=== PATIENT | female | born 1960 | race Caucasian/White ===

== ENCOUNTER 2020-02-23 13:08 | Outpatient (REF) | payer OTHER, SELFPAY ==
--- NOTE | 2020-02-23 | MM_ITS ---
EXAMINATION: MM SCREENING DIGITAL BREAST TOMOSYNTHESIS, BILATERAL CLINICAL INFORMATION: Screening. Asymptomatic. No previous surgery. No known family history breast cancer. The lifetime risk of breast cancer based on the Tyrer-Cuzick Model is 5%. COMPARISON: Mammography: 02/19/2019, 12/31/2017, 11/22/2016, 02/20/2016, 09/28/2014 TECHNIQUE: Digital breast tomosynthesis is performed in both the craniocaudal and mediolateral oblique views along with computer-aided detection (CAD). Synthesized 2D images are generated from the tomosynthesis. FINDINGS: There are scattered areas of fibroglandular density (ACR BI-RADS breast composition Category b). The right breast shows no significant changes from prior studies. There is no developing density or interval mass or architectural abnormality. Neither breast shows abnormal calcifications. The bilateral axilla and skin contours are unremarkable. The left MLO view has subtle architectural changes upper quadrant 8 cm from nipple, best appreciated on tomography. There is no correlate on the CC view. Oval parenchymal asymmetry outer left breast on CC view is stable from multiple prior studies. Patient will be recalled for additional imaging. MM/MM tomosynthesis screening BI IMPRESSION: 1. Left: Subtle architectural distortion suspected posterior upper breast on MLO tomography. 2. Right: No mammographic evidence of malignancy. ASSESSMENT: BI-RADS 0: Incomplete - Need Additional Imaging Evaluation RECOMMENDATION: 1. Additional views of the left breast (3-D spot MLO, 3-D ML). 2. Targeted ultrasound if warranted after review of the additional views. 3. Radiology department staff will contact the patient for additional imaging. This patient's information was entered into a reminder system with a target due date for their next mammogram.
== END 2020-02-23 13:09 | disposition home or self-care (01) ==
LOC: HO.MAMMO 13:08
PROVIDERS: PCP Internal Medicine; Visit Provider Internal Medicine
DX: Z12.31 Encounter for screening mammogram for malignant neoplasm of breast (principal)
CPT/HCPCS: 77063; 77067

== ENCOUNTER 2020-03-15 09:18 | Outpatient (REF) | payer OTHER, SELFPAY ==
--- NOTE | 2020-03-15 09:22 | MM_ITS ---
EXAMINATION: MM DIAGNOSTIC DIGITAL BREAST TOMOSYNTHESIS, LEFT US DIAGNOSTIC ULTRASOUND BREAST, LEFT CLINICAL INFORMATION: Recall from screening for subtle architectural changes posterior outer left breast 2:00 to 3:00 position. COMPARISON: Mammography: 02/23/2020 and multiple prior exams dating back to 03/01/2009 TECHNIQUE: Digital breast tomosynthesis is performed. 2D images are generated from the tomosynthesis. The following views are obtained: 3-D spot MLO, 3-D spot ML Ultrasound left breast is targeted to the 2:00 to 3:00 position. Grayscale imaging and color Doppler are performed without and with harmonics. FINDINGS: There are scattered areas of fibroglandular density (ACR BI-RADS breast composition Category b). There are subtle architectural changes in the area for recall. The additional views appears similar to prior studies dating back to 2008. There is no increasing architectural changes or developing density. Ultrasound demonstrates no cystic or solid mass, architectural abnormality, or focal posterior shadowing. Results are discussed with the patient at time of visit. Patient has history bilateral reduction mammoplasty 2004. Findings are considered to be benign given the lack of significant change since 2008 and the prior history breast surgery. MM/MM tomosynthesis added views L IMPRESSION: Old scarring left breast consistent with prior remote mammography and prior history reduction mammoplasty. ASSESSMENT: BI-RADS 2: Benign RECOMMENDATION: Routine annual mammography screening. This patient's information was entered into a reminder system with a target due date for their next mammogram.
== END 2020-03-15 09:19 | disposition home or self-care (01) ==
LOC: HO.MAMMO 09:18
PROVIDERS: PCP Internal Medicine; Visit Provider Internal Medicine
DX: N64.89 Other specified disorders of breast (principal)
CPT/HCPCS: 76642; 77061; 77065

== ENCOUNTER 2021-01-17 09:13 | Outpatient (REF) | payer OTHER, SELFPAY ==
[2021-01-17 09:37] LABS: MANUAL DIFF FLAG NO
[2021-01-17 09:55] LABS: Basophils Absolute Auto 0.1 X10*3/uL (0.0-0.2); Basophils Percent Auto 0.7 % (0-2); Eosinophils Absolute Auto 0.1 X10*3/uL (0.0-0.4); Eosinophils Percent Auto 1.3 % (0-4); Hematocrit 44.7 % (37-47); Hemoglobin 14.8 g/dl (12.0-16.0); Imm Gran Abs Auto 0.02 X10*3/uL (0.00-0.03); Imm Gran Pct Auto 0.3 % (0.0-0.4); Lymphocytes Absolute Auto 2.3 X10*3/uL (1.2-4.9); Lymphocytes Percent Auto 34.1 % (20-40); Mean Corpuscular HGB Conc 33.1 g/dl (31.0-35.0); Mean Corpuscular Hemoglobin 28.2 pg (27.0-33.0); Mean Corpuscular Volume 85.3 fL (80-98); Mean Platelet Volume 9.7 fL (9.4-12.3); Monocytes Absolute Auto 0.6 X10*3/uL (0.1-1.2); Monocytes Percent Auto 8.2 % (2-11); Neutrophils Absolute Auto 3.8 X10*3/uL (2.0-8.3); Neutrophils Percent Auto 55.4 % (45-73); Platelet Count 338 X10*3/uL (160-400); Red Blood Count 5.24 X10*6/uL (4.20-5.50); Red Cell Distribution Width 12.9 % (11.0-16.0); White Blood Count 6.8 X10*3/uL (4.8-10.8)
[2021-01-17 10:13] LABS: Alanine Aminotransferase 13 U/L (0-31); Albumin Level 4.5 g/dL (3.5-5.0); Alkaline Phosphatase 62 U/L (39-117); Anion Gap 11 (12-20); Aspartate Amino Transferase 15 U/L (5-31); Bilirubin Total 0.6 mg/dL (0.0-1.0); Blood Urea Nitrogen 10 mg/dL (9-16); Calcium 10.1 mg/dL (8.4-10.2); Carbon Dioxide 29 mmol/L (22-29); Chloride 105 mmol/L (96-108); Cholesterol 291 mg/dL; Estimated Glomerular Filt Rate > 60; Glucose Fasting 107 mg/dL (60-99); HDL Cholesterol 47 mg/dL; LDL Cholesterol Calculated 219 mg/dl; Potassium 4.3 mmol/L (3.3-5.1); Sodium 141 mmol/L (135-145); Total Protein 7.2 g/dL (6.5-8.0); Triglycerides 126 mg/dL
[2021-01-17 10:38] LABS: Vitamin D 25-OH Total 31.5 ng/mL (>30)
[2021-01-17 10:45] LABS: Vitamin B12 426 pg/mL (200-900)
== END 2021-01-17 09:14 | disposition home or self-care (01) ==
LOC: HO.LAB 09:13
PROVIDERS: PCP Internal Medicine; Visit Provider Internal Medicine
DX: Z00.00 Encounter for general adult medical examination without abnormal findings (principal); E53.8 Deficiency of other specified B group vitamins; M81.0 Age-related osteoporosis without current pathological fracture
CPT/HCPCS: 36415; 80053; 80061; 82306; 82607; 85025

== ENCOUNTER 2021-03-23 08:56 | Outpatient (REF) | payer OTHER, SELFPAY ==
--- NOTE | ~2021-03-23 | MM_ITS ---
EXAMINATION: MM SCREENING DIGITAL BREAST TOMOSYNTHESIS, BILATERAL CLINICAL INFORMATION: Screening. Asymptomatic. The lifetime risk of breast cancer based on the Tyrer-Cuzick Model is 5.6%. COMPARISON: Mammography: March 15, 2020 and studies dating back to April 11, 2010. TECHNIQUE: Digital breast tomosynthesis is performed in both the craniocaudal and mediolateral oblique views along with computer-aided detection (CAD). Synthesized 2D images are generated from the tomosynthesis. FINDINGS: There are scattered areas of fibroglandular density (ACR BI-RADS breast composition Category b). There are no significant masses, abnormal calcifications, or other abnormalities. Region of architectural distortion upper outer aspect of the left breast appears stable. MM/MM tomosynthesis screening BI IMPRESSION: There are no significant changes from prior study. ASSESSMENT: BI-RADS 2: Benign RECOMMENDATION: Routine annual mammography screening. This patient's information was entered into a reminder system with a target due date for their next mammogram.
--- NOTE | ~2021-03-23 | MM_ITS ---
EXAMINATION: BONE DENSITOMETRY CLINICAL INDICATION: Menopause. Osteoporosis. COMPARISON: Baseline BD dated 09/28/2010. TECHNIQUE: Using a Add[employer]ive DXA System (software version: 13.1) manufactured by [employer], dual-energy x-ray absorptiometry was performed of the lumbar spine and left hip. The images are of good technical quality. Summary results are attached. FINDINGS: AP SPINE L1-L4: Current: BMD 0.755 g/cm2, Z-score -2.3, T-score -3.5, osteoporosis, 16.3% decrease from baseline (<5% change is not significant). Baseline: BMD 0.902 g/cm2. LEFT FEMUR, NECK: Current: BMD 0.768 g/cm2, Z-score -0.7, T-score -1.9, osteopenia. Baseline: BMD 0.842 g/cm2. LEFT FEMUR, TOTAL: Current: BMD 0.871 g/cm2, Z-score -0.2, T-score -1.1, osteopenia, 6.8% decrease from baseline (<5% change is not significant). Baseline: BMD 0.935 g/cm2. IDENTIFIED RISK FACTORS: Early menopause, hysterectomy, bilateral oophorectomy, osteoporosis, secondary osteoporosis. HISTORY OF FRACTURE: None listed. MEDICATIONS: None listed. MM/XR DEXA axial skeleton IMPRESSION: 1. DIAGNOSIS: Osteoporosis based on the lowest T-score value of -3.5 in the lumbar spine applying World Health Organization criteria. 2. 10-YEAR FRACTURE RISK PREDICTION, FRAX: According to the guidelines, FRAX calculation should only be performed on patients in the osteopenia bone density category. 3. Treatment Recommendations: NOF guidelines recommend consideration for treatment in postmenopausal women and men age 50 and older presenting with the following: -A hip or vertebral (clinical or morphometric) fracture. -T-score less than or equal to -2.5 at the femoral neck or spine after appropriate evaluation to exclude secondary causes. -Low bone mass at the hip or spine and a 10-year fracture probability by FRAX of greater than or equal to 3% for hip fracture or greater than or equal to 20% for major osteoporotic fracture based on the [place] adapted WHO algorithm. 4. Other Recommendations: All treatment decisions require clinical judgment and consideration of individual patient factors, including patient preferences, comorbidities, previous drug use, risk factors not captured in the FRAX model (e.g. frailty, falls, vitamin D deficiency, increased bone turnover, interval significant decline in bone density) and possible under or overestimation of fracture risk by FRAX. Additional medical evaluation for secondary cause of low bone mineral density may be appropriate. FUTURE SCAN RECOMMENDATION: People with diagnosed cases of osteoporosis or at high risk for fracture should have regular bone mineral density tests. For patients eligible for Medicare, routine testing is allowed once every 2 years. The testing frequency can be increased to one year for patients who have rapidly progressing disease, those who are receiving or discontinuing medical therapy to restore bone mass, or have additional risk factors.
== END 2021-03-23 08:57 | disposition home or self-care (01) ==
LOC: HO.MAMMO 08:56
PROVIDERS: Absent Provider Obstetrics & Gynecology Gynecology; Visit Provider Internal Medicine
DX: Z12.31 Encounter for screening mammogram for malignant neoplasm of breast (principal); Z13.820 Encounter for screening for osteoporosis; M81.0 Age-related osteoporosis without current pathological fracture; Z78.0 Asymptomatic menopausal state; Z98.890 Other specified postprocedural states; Z90.722 Acquired absence of ovaries, bilateral
CPT/HCPCS: 77063; 77067; 77080

== ENCOUNTER 2022-04-14 13:07 | Outpatient (REF) | payer OTHER, SELFPAY ==
--- NOTE | ~2022-04-14 | MM_ITS ---
EXAMINATION: MM SCREENING DIGITAL BREAST TOMOSYNTHESIS, BILATERAL CLINICAL INFORMATION: Screening. Asymptomatic. Breast reduction mammoplasty, 2005. The lifetime risk of breast cancer based on the Tyrer-Cuzick Model is 6%. COMPARISON: Mammography: 03/23/2021, 03/15/2020, 02/23/2020, 02/19/2019 TECHNIQUE: Digital breast tomosynthesis is performed in both the craniocaudal and mediolateral oblique views along with computer-aided detection (CAD). Synthesized 2D images are generated from the tomosynthesis. FINDINGS: There are scattered areas of fibroglandular density (ACR BI-RADS breast composition Category b). Parenchymal pattern is similar to prior studies. There is chronic oval nodular asymmetry posterior outer left breast on CC view and old fine postsurgical scarring posterior outer left breast on MLO view. There is no developing density or interval architectural changes. No abnormal calcifications. The axilla are unremarkable. MM/MM tomosynthesis screening BI IMPRESSION: No significant changes from prior studies. ASSESSMENT: BI-RADS 2: Benign RECOMMENDATION: Routine annual mammography screening. This patient's information was entered into a reminder system with a target due date for their next mammogram.
== END 2022-04-14 13:08 | disposition home or self-care (01) ==
LOC: HO.MAMMO 13:07
PROVIDERS: PCP Internal Medicine; Visit Provider Internal Medicine
DX: Z12.31 Encounter for screening mammogram for malignant neoplasm of breast (principal)
CPT/HCPCS: 77063; 77067

== ENCOUNTER 2022-08-10 07:27 | Outpatient (REF) | payer OTHER, SELFPAY ==
[2022-08-10 07:37] LABS: MANUAL DIFF FLAG NO
[2022-08-10 08:26] LABS: Basophils Absolute Auto 0.1 X10*3/uL (0.0-0.2); Basophils Percent Auto 0.9 % (0-2); Eosinophils Absolute Auto 0.2 X10*3/uL (0.0-0.4); Eosinophils Percent Auto 2.6 % (0-4); Hematocrit 44.3 % (37.0-47.0); Hemoglobin 14.6 g/dl (12.0-16.0); Imm Gran Abs Auto 0.02 X10*3/uL (0.00-0.03); Imm Gran Pct Auto 0.3 % (0.0-0.4); Lymphocytes Absolute Auto 2.6 X10*3/uL (1.2-4.9); Lymphocytes Percent Auto 37.8 % (20-40); Mean Corpuscular Volume 84.9 fL (80.0-98.0); Mean Platelet Volume 9.9 fL (9.4-12.3); Monocytes Absolute Auto 0.6 X10*3/uL (0.1-1.2); Monocytes Percent Auto 8.4 % (2-11); Neutrophils Absolute Auto 3.5 x10*3/uL (2.0-8.3); Platelet Count 312 X10*3/uL (160-400); Red Blood Count 5.22 X10*6/uL (4.20-5.50); Red Cell Distribution Width 13.3 % (11.0-16.0); White Blood Count 6.9 X10*3/uL (4.8-10.8)
[2022-08-10 09:16] LABS: Alanine Aminotransferase 21 U/L (0-31); Albumin Level 4.6 g/dL (3.5-5.0); Alkaline Phosphatase 56 U/L (39-117); Anion Gap 13 (12-20); Aspartate Amino Transferase 21 U/L (5-31); Bilirubin Total 0.9 mg/dL (0.0-1.0); Blood Urea Nitrogen 14 mg/dL (9-16); Calcium 9.9 mg/dL (8.4-10.2); Carbon Dioxide 28 mmol/L (22-29); Chloride 104 mmol/L (96-108); Cholesterol 229 mg/dL; Estimated Glomerular Filt Rate > 60; Glucose Fasting 96 mg/dL (60-99); HDL Cholesterol 55 mg/dL; LDL Cholesterol Calculated 159 mg/dl; Magnesium 2.4 mg/dL (1.6-2.6); Potassium 4.5 mmol/L (3.3-5.1); Sodium 140 mmol/L (135-145); Total Protein 7.2 g/dL (6.5-8.0); Triglycerides 79 mg/dL
[2022-08-10 09:18] LABS: Vitamin D 25-OH Total 36.3 ng/mL (>30)
== END 2022-08-10 07:28 | disposition home or self-care (01) ==
LOC: HO.LAB 07:27
PROVIDERS: PCP Internal Medicine; Visit Provider Internal Medicine
DX: Z00.00 Encounter for general adult medical examination without abnormal findings (principal); M85.80 Other specified disorders of bone density and structure, unspecified site; R25.2 Cramp and spasm; E78.00 Pure hypercholesterolemia, unspecified
CPT/HCPCS: 36415; 80053; 80061; 82306; 83735; 85025

== ENCOUNTER 2023-04-20 13:01 | Outpatient (REF) | payer OTHER, SELFPAY ==
--- NOTE | ~2023-04-20 | MM_ITS ---
EXAMINATION: MM SCREENING DIGITAL BREAST TOMOSYNTHESIS, BILATERAL CLINICAL INFORMATION: Screening. Asymptomatic. The patient is status post bilateral breast reduction. COMPARISON: Mammography: This study is compared with prior exams dating back to 2018. TECHNIQUE: Digital breast tomosynthesis is performed in both the craniocaudal and mediolateral oblique views along with computer-aided detection (CAD). Synthesized 2D images are generated from the tomosynthesis. FINDINGS: There are scattered areas of fibroglandular density (ACR BI-RADS breast composition Category b). There are no significant masses, abnormal calcifications, or other abnormalities. Post reduction changes are present. MM/MM tomosynthesis screening BI IMPRESSION: No mammographic evidence of malignancy. ASSESSMENT: BI-RADS BI-RADS 2 - Benign Findings RECOMMENDATION: Routine annual mammography screening. 1 year F/U This examination should not preclude the clinical evaluation of a suspicious palpable abnormality. This patient's information was entered into a reminder system with a target due date for their next mammogram.
== END 2023-04-20 13:02 | disposition home or self-care (01) ==
LOC: HO.MAMMO 13:01
PROVIDERS: PCP Internal Medicine; Visit Provider Internal Medicine
DX: Z12.31 Encounter for screening mammogram for malignant neoplasm of breast (principal)
CPT/HCPCS: 77063; 77067

== ENCOUNTER → 2023-04-20 13:15 | Outpatient (BNV) | payer OTHER, SELFPAY | PROVIDERS: PCP Internal Medicine; Visit Provider Radiology Diagnostic Radiology | DX: Z12.31 Encounter for screening mammogram for malignant neoplasm of breast (principal) | CPT/HCPCS: 77063; 77067 ==

== ENCOUNTER 2023-04-23 06:32 | Day surgery (SDC) | payer OTHER, SELFPAY ==
--- NOTE | 2023-04-20 08:12 | HO.ANESPROP2 ---
Documented by User: Kamilah Salinas NP 04/20/23 08:13 HPI - Anesthesia Eval Consult details Narrative: 62yo F for Colonoscopy [facility] Past Medical History Medical History (Updated 04/20/23 @ 08:13 by Kamilah Salinas NP) No pertinent past medical history Surgical History Surgical History (Updated 04/20/23 @ 06:42 by Mckenzie Barba, RN) Hx of shoulder surgery H/O inguinal hernia repair H/O bilateral breast reduction surgery History of total abdominal hysterectomy H/O colonoscopy Social History Social History Patient Tobacco Use Status: Former Tobacco user Are you DNR?: No Advance Directives: No Advance Directives Information Provided: Yes Recently lost weight without trying: No Nutrition Risks: No Nutritional Risk Meds Allergies Allergy/AdvReac Type Severity Reaction Status Date / Time No Known Allergies Allergy Mild NKA Unverified 12/18/19 16:29 Home Medications Medication Instructions Recorded Confirmed Last Taken Type calcium carbonate 500 mg calcium mg 04/20/23 04/20/23 Unknown History (1,250 mg) tablet cyanocobalamin (vitamin B-12) 100 100 mcg PO DAILY 04/20/23 04/20/23 Unknown History mcg tablet (Vitamin B-12) Assessment and Plan Assessment Anesthesia Assessment: Chart Reviewed Documented by User: Sara Paez MD 04/23/23 08:44 [facility] Past Medical History Medical History (Updated 04/20/23 @ 08:13 by Kamilah Salinas NP) No pertinent past medical history Family History Family history of problems with anesthesia: No Surgical History Surgical History (Updated 04/20/23 @ 06:42 by Mckenzie Barba, MERNA) Hx of shoulder surgery H/O inguinal hernia repair H/O bilateral breast reduction surgery History of total abdominal hysterectomy H/O colonoscopy History of Problems with Anesthesia: No Social History Social History Patient Tobacco Use Status: Former Tobacco user Are you DNR?: No Advance Directives: No Advance Directives Information Provided: Yes Recently lost weight without trying: No Nutrition Risks: No Nutritional Risk Meds Allergies Allergy/AdvReac Type Severity Reaction Status Date / Time No Known Allergies Allergy Mild NKA Unverified 12/18/19 16:29 Home Medications Medication Instructions Recorded Confirmed Last Taken Type calcium carbonate 500 mg calcium mg 04/20/23 04/20/23 Unknown History (1,250 mg) tablet cyanocobalamin (vitamin B-12) 100 100 mcg PO DAILY 04/20/23 04/20/23 Unknown History mcg tablet (Vitamin B-12) Exam Airway Mallampati Class: I TM Dist: >3cm Neck ROM: Full Heart: rrr Lungs: cta Assessment and Plan Assessment Anesthesia Assessment: Anesthesia Plan Discussed Final Anesthetic Review Family History of Problems with Anesthesia: No History of Problems with Anesthesia: No NPO: Yes ASA Class: I Final Preanesthetic Review: No Changes in Pt Med Stat, Meds/Allgs Chart Reviewed, Consent Obtained/Reviewed and Anes Risks/Benef Reviewed Patient Risk: Low Procedure Risk: Low Anesthetic Plan Anesthetic Plan: MAC: Disposition: Standard PACU
[2023-04-23 06:55] VITALS: BP 149/79; PULSE 75; RESP 20; TEMP 36.9; O2SAT 97; BMI 23.5
[2023-04-23] MEDS: Lactated Ringers 1,000 ML 100 ML IVCONT (07:06)
[2023-04-23 08:29] VITALS: BP 114/45; PULSE 78; RESP 16; TEMP 36.3; O2SAT 97
--- NOTE | 2023-04-23 08:34 | P.BOP_ITS ---
Brief Operative Note Date of Service: 04/23/23 Pre-op diagnosis: Screening Post-op diagnosis: other (Polyp, Cecal AVM's) Procedure: Colonoscopy to the cecum with hot snare polypectomy x 1 Surgeon: Lux Medina MD Was an Kindergarten Paraprofessional used for this Procedure?: No Estimated blood loss (mL): 0 Pathology: other (A. Ascending colon polyp) Condition: stable Disposition: PACU
[2023-04-23 08:44] VITALS: BP 124/55; PULSE 62; RESP 16; TEMP 36.3
--- NOTE | 2023-04-23 09:09 | OP_ITS ---
DATE OF SERVICE: 04/23/2023 SURGEON: Lux Medina MD INDICATIONS: The patient presents for evaluation of colorectal cancer screening. Full consent has been obtained from her for this, including risks of bleeding and perforation. PREOPERATIVE DIAGNOSIS: Colorectal cancer screening. POSTOPERATIVE DIAGNOSIS: PROCEDURE PERFORMED: Colonoscopy to cecum with hot snare polypectomy x1. ESTIMATED BLOOD LOSS: COMPLICATIONS: ANESTHESIA: Monitored anesthesia care. ASSISTANTS: SPECIMENS: POSTOPERATIVE DIAGNOSES: Colorectal cancer screening, colon polyp, diverticulosis, cecal angiodysplasias, and internal hemorrhoids. DESCRIPTION OF PROCEDURE: The patient was placed in the left lateral decubitus position. The digital rectal exam revealed no abnormalities. The Olympus video pediatric colonoscope was entered into the rectum and advanced easily to the cecum. Once in the cecum, I did identify normal-appearing cecal pouch other than two approximately 5 mm, nonbleeding angiodysplasias near the appendiceal orifice. The remainder of the cecum and ileocecal valve appeared normal. There was transillumination of light deep in the right lower quadrant. The scope was slowly withdrawn assessing all mucosal surfaces carefully. Preparation was excellent. In the proximal ascending colon, there was an approximately 10 mm flat polyp, which was removed by hot snare polypectomy and recovered by suction. The polypectomy site appeared clean, without any sign of residual polyp nor bleeding. I did not visualize any other polyps, colitis, nor other angiodysplasias. There was a mild amount of sigmoid diverticulosis. In the rectum, scope was retroflexed visualizing internal hemorrhoids, but no other pathology. The rectal mucosa appeared normal. Scope was straightened and withdrawn from the patient. She tolerated the procedure well and was returned to recovery area in stable condition. IMPRESSION: 1. Colon polyp. 2. Nonbleeding cecal angiodysplasias. 3. Diverticulosis. 4. Internal hemorrhoids. PLAN: The results of the pathology will be checked. If this is only hyperplastic, I would recommend a followup colonoscopy in 10 years. If it is adenomatous or serrated, I would recommend a repeat colonoscopy in 5 years. She was advised not to use any aspirin and NSAIDs for 1 week. MD TERRENCE Atwood/ROBERTOL / [id number]
== END 2023-04-23 09:05 | disposition home or self-care (01) ==
PROVIDERS: PCP Internal Medicine; Visit Provider Internal Medicine
PROC: 0DJD8ZZ Inspection of Lower Intestinal Tract, Via Natural or Artificial Opening Endoscopic (ICD-10-PCS; CPT 45378; principal; 2023-04-23 07:30)
DX: Z12.11 Encounter for screening for malignant neoplasm of colon (principal); D12.2 Benign neoplasm of ascending colon; K55.20 Angiodysplasia of colon without hemorrhage; K57.30 Diverticulosis of large intestine without perforation or abscess without bleeding; K64.8 Other hemorrhoids
CPT/HCPCS: 45385; 88305; J2704

== ENCOUNTER 2023-06-06 13:29 | Outpatient (REF) | payer OTHER, SELFPAY ==
--- NOTE | ~2023-06-06 | MR_ITS ---
EXAMINATION: MRI OF THE BRAIN WITH AND WITHOUT IV CONTRAST INDICATION: Unilateral tinnitus left ear, acoustic neuroma COMPARISON: None available. TECHNIQUE: Multiplanar multisequence MR imaging of the brain was obtained without and following the administration of 6 mL of Gadavist without complication with dedicated IAC pulse series. FINDINGS: The inner ear structures including the cochlea, vestibules, and semicircular canals exhibit preserved CSF signal intensity with no pathologic enhancement. There is suggestion of thinning involving the bony coverage along the superior semicircular canals bilaterally. The vestibular aqueducts are not enlarged. Cranial nerves VII and VIII complexes are normal in morphology. No enhancing CP angle/retrocochlear lesion. No acute intracranial hemorrhage or infarct. Confluent periventricular white matter T2/FLAIR hyperintensities, nonspecific however commonly seen with small vessel ischemic disease. No abnormal intraparenchymal enhancement. No midline shift or hydrocephalus. No acute extra-axial fluid collections. The osseous structures are unremarkable. The pituitary gland, pineal gland and remaining midline structures are unremarkable. No orbital pathology. The paranasal sinuses and mastoid air cells are clear. MR/MR head/brain wo/w con IMPRESSION: -No retrocochlear pathology. -Suggestion of thinning involving the bony coverage along the superior semicircular canals bilaterally. If there is concern for superior semicircular canal dehiscence, consider noncontrast temporal bone CT. -No acute intracranial abnormality.
[2023-06-06] MEDS: gadobutroL 7.5 ML VIAL IVPUSH (14:35)
== END 2023-06-06 13:30 | disposition home or self-care (01) ==
LOC: HO.MRI 13:29
PROVIDERS: PCP Internal Medicine; Visit Provider Otolaryngology
DX: H93.13 Tinnitus, bilateral (principal); D33.3 Benign neoplasm of cranial nerves
CPT/HCPCS: 70553; A9585

== ENCOUNTER 2023-08-13 10:52 | Outpatient (REF) | payer OTHER, SELFPAY ==
[2023-08-13 11:02] LABS: MANUAL DIFF FLAG NO
[2023-08-13 11:49] LABS: Basophils Absolute Auto 0.1 X10*3/uL (0.0-0.2); Basophils Percent Auto 0.8 % (0-2); Eosinophils Absolute Auto 0.1 X10*3/uL (0.0-0.4); Eosinophils Percent Auto 1.1 % (0-4); Hematocrit 47.3 % (37.0-47.0); Hemoglobin 15.9 g/dl (12.0-16.0); Imm Gran Abs Auto 0.02 X10*3/uL (0.00-0.03); Imm Gran Pct Auto 0.3 % (0.0-0.4); Lymphocytes Absolute Auto 2.5 X10*3/uL (1.2-4.9); Lymphocytes Percent Auto 34.2 % (20-40); Mean Corpuscular HGB Conc 33.6 g/dl (31.0-35.0); Mean Corpuscular Hemoglobin 28.9 pg (27.0-33.0); Mean Corpuscular Volume 85.8 fL (80.0-98.0); Mean Platelet Volume 10.2 fL (9.4-12.3); Monocytes Absolute Auto 0.6 X10*3/uL (0.1-1.2); Monocytes Percent Auto 7.7 % (2-11); Neutrophils Absolute Auto 4.1 x10*3/uL (2.0-8.3); Neutrophils Percent Auto 55.9 % (45-73); Platelet Count 312 X10*3/uL (160-400); Red Blood Count 5.51 X10*6/uL (4.20-5.50); Red Cell Distribution Width 13.3 % (11.0-16.0); White Blood Count 7.4 X10*3/uL (4.8-10.8)
[2023-08-13 12:35] LABS: Alanine Aminotransferase 14 U/L (0-31); Albumin Level 4.6 g/dL (3.5-5.0); Alkaline Phosphatase 63 U/L (39-117); Anion Gap 13 (12-20); Aspartate Amino Transferase 15 U/L (5-31); Bilirubin Total 0.6 mg/dL (0.0-1.0); Blood Urea Nitrogen 14 mg/dL (9-16); Calcium 10.2 mg/dL (8.4-10.2); Carbon Dioxide 29 mmol/L (22-29); Chloride 103 mmol/L (96-108); Cholesterol 279 mg/dL (<200); Estimated Glomerular Filt Rate > 60; Glucose Fasting 103 mg/dL (60-99); HDL Cholesterol 54 mg/dL (>40); LDL Cholesterol Calculated 199 mg/dL (<100); Potassium 4.4 mmol/L (3.3-5.1); Sodium 141 mmol/L (135-145); Total Protein 7.9 g/dL (6.5-8.0); Triglycerides 131 mg/dL (<150)
[2023-08-13 12:52] LABS: Vitamin D 25-OH Total 43.8 ng/mL (>30)
== END 2023-08-13 10:53 | disposition home or self-care (01) ==
LOC: HO.LAB 10:52
PROVIDERS: PCP Internal Medicine; Visit Provider Internal Medicine
DX: E78.00 Pure hypercholesterolemia, unspecified (principal); M81.0 Age-related osteoporosis without current pathological fracture
CPT/HCPCS: 36415; 80053; 80061; 82306; 85025

== ENCOUNTER 2024-01-14 07:40 | Outpatient (REF) | payer OTHER, SELFPAY ==
[2024-01-14 08:50] LABS: Alanine Aminotransferase 28 U/L (0-31); Albumin Level 4.3 g/dL (3.5-5.0); Alkaline Phosphatase 68 U/L (39-117); Anion Gap 11 (12-20); Aspartate Amino Transferase 20 U/L (5-31); Bilirubin Total 0.6 mg/dL (0.0-1.0); Blood Urea Nitrogen 19 mg/dL (9-16); Calcium 9.4 mg/dL (8.4-10.2); Carbon Dioxide 29 mmol/L (22-29); Chloride 105 mmol/L (96-108); Cholesterol 178 mg/dL (<200); Estimated Glomerular Filt Rate > 60; Glucose Fasting 111 mg/dL (60-99); HDL Cholesterol 52 mg/dL (>40); LDL Cholesterol Calculated 113 mg/dL (<100); Potassium 3.9 mmol/L (3.3-5.1); Sodium 141 mmol/L (135-145); Total Protein 6.9 g/dL (6.5-8.0); Triglycerides 68 mg/dL (<150)
== END 2024-01-14 07:41 | disposition home or self-care (01) ==
LOC: HO.LAB 07:40
PROVIDERS: PCP Internal Medicine; Visit Provider Internal Medicine
DX: E78.00 Pure hypercholesterolemia, unspecified (principal)
CPT/HCPCS: 36415; 80053; 80061

== ENCOUNTER 2024-04-22 12:33 | Outpatient (REF) | payer OTHER, SELFPAY ==
--- OUTSIDE RECORDS SUMMARY | 2024-04-22 14:09 | XMS_ITS | Patient Health Record ---
Author Organization [employer] [facility] Address [address] [place] [address] Care Team Providers Care Senior Painter Name Role Phone JACLYN CURRY M.D. Primary Care Provider Charleen Nicholson Unavailable [phone] Allergies No Known Allergies Reason For Referral No Information Medications Medication SIG (Take, Route, Fr equency, Duration) Notes Start Date End Date Status Calcium-D Active Magnesium 200 MG 2 tablets with a radha l Orally Once a day for 30 day(s) Active Social History Tobacco Use: Social History Observation Description Date Details (start date - stop date) Former Smoker NA - NA Tobacco Use/Smoking Question Answer Notes Are you a former smoker How long has it been since you last smoked? > 10 years Alcohol Screen (Audit-C) Question Answer Notes Did you have a drink containing alcohol in the p ast year? No Points 0 Interpretation Negative Sexual History Question Answer Notes Had sex in the past 12 months (vaginal, oral, or anal)? No Have you ever had a Sexually transmitted disease ? No Problems Problem Type SNOMED Code ICD Code Onset Dates Problem Status W/U Status Risk Notes Problem Postmenopausal atrophic vaginitis (48778986) Postmenopausal atrophic vaginitis (N95.2) Active confirmed Problem History of dysplasia of cervix (040739919) Personal history of cervical dysplasia (Z87.410) Active confirmed Plan Of Treatment Pending Test Test Name Order Date BONE DENSITY 03/08/2021 MM Digital Mammo Screening 03/08/2021 MM Digital Mammo Screening 05/11/2022 Insurance Providers Payer Name Payer Address Payer Phone Subscriber Number Group Number Insured Name Patient Relationship to Insured Coverage Start Date Coverage End Date [employer] [address] [place], [place] [id number]STILLO Self - patient is the insured Medical (General) History Medical History History ICD Code Personal history of cervical dysplasia Z 87.410 Sebaceous cyst L72.3 Surgical History Surgery Date(Month/Year) Hysterectomy 05/2000 Breast Reduction 01/2005 Transvaginal Sling Hernia Repair Colonoscopy Hospitalization History Reason Date(Month/Year) 1 Vaginal Delivery See Surgical Hx
--- OUTSIDE RECORDS SUMMARY | 2024-04-22 14:09 | XMS_ITS ---
Author Organization [facility] Address [address] [address] Care Team Providers Care Captain Assistant Name Role Phone JACLYN CURRY M.D. Primary Care Provider Charleen Nicholson [phone] REASON FOR VISIT Annual (YELLOW FORM DONE) Encounters Encounter Location Date Provider Diagnosis [facility] [address] [address] 05/17/2023 Charleen Lima Plan Of Treatment No Information Progress Notes * IFEANYI CASTILLOCHRISTOPHERRANDYDOB:1960 (63 yo F)Acc No.[id number]:05/17/2023 PROGRESS NOTES Patient:MOHAMUD WANG Appointment Provider:?Charleen devries M.D. :1960???Age:62 Y???Sex:Female D ate:05/17/2023 Address:[address] [place] [address] [address] [id number] Pcp:JACLYN CURRY M.D. Subjective: * Chief Complaints: * ???1. Annual (YELLOW FORM DO NE). * Medical History:? Objective: * Vitals:? Assessment: Plan: * Treatment: * Images: Billing Information: * Visit Code:? * Procedure Codes:? * Electronic signature of Linda Lima MD on 04/22/2024 at 02:08 PM EST Sign off status: Pending * Appointment Provider:?Charleen Lima M.D. Date:?05/17/2023 Generated for Eleazar mcnair/Lissette/Annemarie on:?04/22/2024 02:08 PM EST
== END 2024-04-22 12:34 | disposition home or self-care (01) ==
LOC: HO.MAMMO 12:33
PROVIDERS: PCP Internal Medicine; Visit Provider Internal Medicine
DX: Z12.31 Encounter for screening mammogram for malignant neoplasm of breast (principal)
CPT/HCPCS: 77063; 77067

== ENCOUNTER → 2024-04-22 12:45 | Outpatient (BNV) | payer OTHER, SELFPAY | PROVIDERS: PCP Internal Medicine; Visit Provider Internal Medicine | DX: Z12.31 Encounter for screening mammogram for malignant neoplasm of breast (principal) | CPT/HCPCS: 77063; 77067 ==

== ENCOUNTER 2024-08-15 13:08 | Outpatient (AMB) | payer OTHER, SELFPAY ==
--- NOTE | 2024-08-15 13:09 | A.OFFPC_ITS ---
Vital Signs 08/15/24 13:15 Height 5 ft 3 in Weight 131 lb BMI 23.2 BP 130/72 Blood Pressure Location Lt brachial Position Sitting Respiration 16 Pulse 81 Pulse Source Pulse Oximeter Temp 98.9 F Temp Source Temporal Artery Scan Pulse Oximetry (%) 98 Oxygen Delivery Method Room Air Intake Visit Reasons: Routine - see comments Intake Note: patient here for routine follow up c/o swollen left leg and ringing in both ears Rat Breeder Required: No Is last menstrual period known: No Post menopausal: No Patient : No Allergies No Known Allergies Allergy (Mild, Verified 08/15/24 13:12) NKA Tobacco use date assessed: 08/15/24 Dental Screening Dental Screen Date: 08/15/24 Did you have a dental visit in the last 12 months?: Yes Did you have a dental problem in the last 6 months where you did not have access to dental care?: No Was dental information given to patient?: Patient has dentist HPI HPI Comments History of Present Illness Details The patient is a 64 year old female with a past medical history of hyperlipidemia, insomnia presenting for follow up Hyperlipidemia-stable on statin. Insomnia-stable on zolpidem Colonoscopy 04/23/2023 Mammogram Apr 2024 ROS CONSTITUTIONAL: Denies weight loss, fever and chills. HEENT: Denies changes in vision and hearing. RESPIRATORY: Denies SOB and cough. CV: Denies palpitations and CP GI: Denies abdominal pain, nausea, vomiting and diarrhea. : Denies dysuria and urinary frequency. MSK: Denies new myalgia and joint pain. SKIN: Denies rash and pruritus. NEUROLOGICAL: Denies headache PSYCHIATRIC: Denies recent changes in mood. PHYSICAL EXAM: GENERAL: Alert and oriented x 3. NAD EYES: EOMI. Anicteric. HENT: Moist mucous membranes. No scleral icterus. No cervical lymphadenopathy. LUNGS: Clear to auscultation bilaterally. CARDIOVASCULAR: Regular rate and rhythm. No murmur. No JVD. ABDOMEN: Soft, non-tender +bs EXTREMITIES: No edema. Non-tender. SKIN: No rashes or lesions. Warm. NEUROLOGIC: No focal neurological deficits. CN II-XII grossly intact PSYCHIATRIC: Cooperative. 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 Current occupational exposures/hazards: No Cognitive needs: No Hearing needs: No Vision needs: Yes Physical exam (Primary Care) Vital Signs: Last Vital Signs Temp 98.9 F 08/15/24 13:15 Pulse 81 08/15/24 13:15 Resp 16 08/15/24 13:15 BP 130/72 08/15/24 13:15 Pulse Ox 98 08/15/24 13:15 Oxygen Delivery Method Room Air 08/15/24 13:15 BMI result Body Mass Index 23.2 Tobacco/Smoking Status: Tobacco use Status Tobacco use date assessed 08/15/24 08/15/24 13:18 Patient Tobacco Use Status Former Tobacco user 08/15/24 13:18 e-Cigarette/Vaping Use Never Used 08/15/24 13:18 Coding Level of Care Code Est Pt Prev Care 40-64y(70944) Diagnoses Physical exam Z00.00 Hyperlipidemia, unspecified hyperlipidemia type E78.5 Hyperlipidemia type: unspecified Screening for metabolic disorder Z13.228 Osteopenia, unspecified location M85.80 Osteopenia location: unspecified Assessment & Plan Assessment & Plan (1) Physical exam: Code(s): Z00.00 - Encounter for general adult medical examination without abnormal findings Category: Medical (2) Hyperlipidemia: Code(s): E78.5 - Hyperlipidemia, unspecified Category: Medical Qualifiers: Hyperlipidemia type: unspecified Qualified Code(s): E78.5 - Hyperlipidemia, unspecified (3) Screening for metabolic disorder: Code(s): Z13.228 - Encounter for screening for other metabolic disorders Category: Medical (4) Osteopenia: Code(s): M85.80 - Other specified disorders of bone density and structure, unspecified site Category: Medical Qualifiers: Osteopenia location: unspecified Qualified Code(s): M85.80 - Other specified disorders of bone density and structure, unspecified site Plan 64 year old for CPE Past medical, surgical, social reviewed Chronic medical conditions are stable HLD-stable on statin Orders: Orders Complete Blood Count Auto Diff Today E78.5 - Hyperlipidemia, unspecified, M 85.80 - Other specified disorders of bone density and structure, unspecified site, Z00.00 - Encounter for general adult medical examination without abnormal findings, Z13.0 - Encounter for screening for diseases of the blood and blood- forming organs and certain disorders involving the immune mechanism, Z13.228 - Encounter for screening for other metabolic disorders Comprehensive Met. Panel Today E78.5 - Hyperlipidemia, unspecified, M85.80 - Other specified disorders of bone density and structure, unspecified site, Z00.00 - Encounter for general adult medical examination without abnormal findings, Z13.0 - Encounter for screening for diseases of the blood and blood- forming organs and certain disorders involving the immune mechanism, Z13.228 - Encounter for screening for other metabolic disorders Vitamin D 25-OH (D2 and D3) Today E78.5 - Hyperlipidemia, unspecified, M85.80 - Other specified disorders of bone density and structure, unspecified site, Z00.00 - Encounter for general adult medical examination without abnormal findings, Z13.0 - Encounter for screening for diseases of the blood and blood- forming organs and certain disorders involving the immune mechanism, Z13.228 - Encounter for screening for other metabolic disorders Lipid Panel Today E78.5 - Hyperlipidemia, unspecified, M85.80 - Other specified disorders of bone density and structure, unspecified site, Z00.00 - Encounter for general adult medical examination without abnormal findings, Z13.0 - Encounter for screening for diseases of the blood and blood-forming organs and certain disorders involving the immune mechanism, Z13.228 - Encounter for screening for other metabolic disorders TSH reflex Free T4 Today E78.5 - Hyperlipidemia, unspecified, M85.80 - Other specified disorders of bone density and structure, unspecified site, Z00.00 - Encounter for general adult medical examination without abnormal findings, Z13.0 - Encounter for screening for diseases of the blood and blood-forming organs and certain disorders involving the immune mechanism, Z13.228 - Encounter for screening for other metabolic disorders Medications: New zolpidem 10 mg PO BEDTIME PRN 30 tabs 3RF insomnia
--- OUTSIDE RECORDS SUMMARY | 2024-08-15 13:10 | XMS_ITS ---
Author Organization [employer] Address [address] [address] Care Team Providers Care Rivet Catcher Name Role Phone JACLYN CURRY M.D. Primary Care Provider Charleen Nicholson [phone] REASON FOR VISIT Annual (YELLOW FORM DONE) Encounters Encounter Location Date Provider Diagnosis [facility] [place] [address] [address] 05/17/2023 Charleen Lima Plan Of Treatment No Information Progress Notes * IFEANYI CASTILLOCHRISTOPHERRANDYDOB:1960 (64 yo F)Acc No.[id number]:05/17/2023 PROGRESS NOTES Patient:MOHAMUD WANG Appointment Provider:?Charleen devries M.D. :1960???Age:62 Y???Sex:Female D ate:05/17/2023 Address:[address] [place] [address] [address] [id number] Pcp:JACLYN CURRY M.D. Subjective: * Chief Complaints: * ???1. Annual (YELLOW FORM DO NE). * Medical History:? Objective: * Vitals:? Assessment: Plan: * Treatment: * Images: Billing Information: * Visit Code:? * Procedure Codes:? * Electronic signature of Linda Lima MD on 08/15/2024 at 01:10 PM EDT Sign off status: Pending * Appointment Provider:?Charleen Lima M.D. Date:?05/17/2023 Generated for Eleazar mcnair/Lissette/Arnulfoitting on:?08/15/2024 01:10 PM EDT
--- OUTSIDE RECORDS SUMMARY | 2024-08-15 13:10 | XMS_ITS | Patient Health Record ---
Author Organization [facility] Address [address] [facility] [address] [place] [address] Care Team Providers Care Industrial Engineering Professor Name Role Phone JACLYN CURRY M.D. Primary Care Provider Charleen Nicholson Unavailable [phone] Allergies No Known Allergies Reason For Referral [...] Status Risk Notes Problem Postmenopausal atrophic vaginitis (N95.2) Active confirmed Problem History of dysplasia of cervix (138975674) Personal history of cervical dysplasia (Z87.410) Active confirmed Plan Of Treatment Pending Test Test Name Order Date BONE DENSITY 03/08/2021 MM Digital Mammo Screening 03/08/2021 MM Digital Mammo Screening 05/11/2022 Insurance Providers Payer Name Payer Address Payer Phone Subscriber Number Group Number Insured Name Patient Relationship to Insured Coverage Start Date Coverage End Date [employer] [address] [place], [place] [id number] MOHAMUD CASTILLO Self - patient is the insured Medical (General) History Medical History History ICD Code Personal history of cervical dysplasia Z 87.410 Sebaceous cyst L72.3 Surgical History Surgery Date(Month/Year) Hysterectomy 05/2000 Breast Reduction 01/2005 Transvaginal Sling Hernia Repair Colonoscopy Hospitalization History Reason Date(Month/Year) 1 Vaginal Delivery See Surgical Hx
[2024-08-15 13:15] VITALS: BP 130/72; PULSE 81; RESP 16; TEMP 37.2; O2SAT 98; BMI 23.2
== END 2024-08-15 13:44 | disposition home or self-care (01) ==
LOC: HO.HMCHD 13:08
PROVIDERS: PCP Internal Medicine; Visit Provider Internal Medicine
DX: Z00.00 Encounter for general adult medical examination without abnormal findings (principal); E78.5 Hyperlipidemia, unspecified; Z13.228 Encounter for screening for other metabolic disorders; M85.80 Other specified disorders of bone density and structure, unspecified site

== ENCOUNTER → 2024-08-15 13:08 | Outpatient (BNVA) | payer OTHER, SELFPAY | PROVIDERS: PCP Internal Medicine; Visit Provider Internal Medicine ==

== ENCOUNTER 2024-08-18 07:34 | Outpatient (REF) | payer OTHER, SELFPAY ==
--- OUTSIDE RECORDS SUMMARY | 2024-08-18 07:36 | XMS_ITS ---
Author Organization [facility] Address [address] [address] Care Team Providers Care Marketing Support Coordinator Name Role Phone JACLYN CURRY M.D. Primary Care Provider Charleen Nicholson [phone] REASON FOR VISIT Annual (YELLOW FORM DONE) Encounters Encounter Location Date Provider Diagnosis [facility] [employer] [address] [address] 05/17/2023 Charleen Lima Plan Of Treatment No Information Progress Notes * IFEANYI CASTILLOCHRISTOPHERRANDYDOB:1960 (64 yo F)Acc No.[id number]:05/17/2023 PROGRESS NOTES Patient:MOHAMUD WANG Appointment Provider:?Charleen devries M.D. :1960???Age:62 Y???Sex:Female D ate:05/17/2023 Address:[address] [place] [address] [address] [id number] Pcp:JACLYN CURRY M.D. Subjective: * Chief Complaints: * ???1. Annual (YELLOW FORM DO NE). * Medical History:? Objective: * Vitals:? Assessment: Plan: * Treatment: * Images: Billing Information: * Visit Code:? * Procedure Codes:? * Electronic signature of Linda Lima MD on 08/18/2024 at 07:36 AM EDT Sign off status: Pending * Appointment Provider:?Charleen Lima M.D. Date:?05/17/2023 Generated for Eleazar mcnair/Lissette/Arnulfoitting on:?08/18/2024 07:36 AM EDT
--- OUTSIDE RECORDS SUMMARY | 2024-08-18 07:36 | XMS_ITS | Patient Health Record ---
Author Organization [facility] Address [address] [facility] [address] [place] [address] Care Team Providers Care Tapper Operator Name Role Phone JACLYN CURRY M.D. Primary Care Provider Charleen Nicholson Unavailable [phone] Allergies No Known Allergies Reason For Referral [...] Status Risk Notes Problem Postmenopausal atrophic vaginitis (69721555) Postmenopausal atrophic vaginitis (N95.2) Active confirmed Problem Personal history of cervical dysplasia (Z87.410) Active confirmed Plan Of Treatment Pending Test Test Name Order Date BONE DENSITY 03/08/2021 MM Digital Mammo Screening 03/08/2021 MM Digital Mammo Screening 05/11/2022 Insurance Providers Payer Name Payer Address Payer Phone Subscriber Number Group Number Insured Name Patient Relationship to Insured Coverage Start Date Coverage End Date [facility] [address] [place], [place] [id number] MOHAMUD CASTILLO Self - patient is the insured Medical (General) History Medical History History ICD Code Personal history of cervical dysplasia Z 87.410 Sebaceous cyst L72.3 Surgical History Surgery Date(Month/Year) Hysterectomy 05/2000 Breast Reduction 01/2005 Transvaginal Sling Hernia Repair Colonoscopy Hospitalization History Reason Date(Month/Year) 1 Vaginal Delivery See Surgical Hx
[2024-08-18 07:43] LABS: MANUAL DIFF FLAG NO
[2024-08-18 08:02] LABS: Basophils Absolute Auto 0.1 X10*3/uL (0.0-0.2); Basophils Percent Auto 0.7 % (0-2); Eosinophils Absolute Auto 0.1 X10*3/uL (0.0-0.4); Eosinophils Percent Auto 1.5 % (0-4); Hematocrit 42.8 % (37.0-47.0); Hemoglobin 14.3 g/dl (12.0-16.0); Imm Gran Abs Auto 0.01 X10*3/uL (0.00-0.03); Imm Gran Pct Auto 0.1 % (0.0-0.4); Lymphocytes Absolute Auto 2.3 X10*3/uL (1.2-4.9); Lymphocytes Percent Auto 34.6 % (20-40); Mean Corpuscular HGB Conc 33.4 g/dl (31.0-35.0); Mean Corpuscular Hemoglobin 28.6 pg (27.0-33.0); Mean Corpuscular Volume 85.6 fL (80.0-98.0); Mean Platelet Volume 9.9 fL (9.4-12.3); Monocytes Absolute Auto 0.6 X10*3/uL (0.1-1.2); Monocytes Percent Auto 8.5 % (2-11); Neutrophils Absolute Auto 3.7 x10*3/uL (2.0-8.3); Neutrophils Percent Auto 54.6 % (45-73); Platelet Count 278 X10*3/uL (160-400); Red Cell Distribution Width 13.1 % (11.0-16.0); White Blood Count 6.7 X10*3/uL (4.8-10.8)
[2024-08-18 08:56] LABS: Alanine Aminotransferase 27 U/L (0-31); Albumin Level 4.6 g/dL (3.5-5.0); Alkaline Phosphatase 60 U/L (39-117); Anion Gap 11 (12-20); Aspartate Amino Transferase 22 U/L (5-31); Bilirubin Total 0.7 mg/dL (0.0-1.0); Blood Urea Nitrogen 23 mg/dL (9-16); Calcium 9.6 mg/dL (8.4-10.2); Carbon Dioxide 28 mmol/L (22-29); Chloride 103 mmol/L (96-108); Cholesterol 176 mg/dL (<200); Estimated Glomerular Filt Rate > 60; Glucose Random 101 mg/dL (60-115); HDL Cholesterol 57 mg/dL (>40); LDL Cholesterol Calculated 109 mg/dL (<100); Potassium 3.8 mmol/L (3.3-5.1); Sodium 138 mmol/L (135-145); Total Protein 7.3 g/dL (6.5-8.0); Triglycerides 54 mg/dL (<150)
[2024-08-18 09:15] LABS: TSH reflex Free T4 2.14 uIU/mL (0.32-4.0)
[2024-08-22 14:23] LABS: Vitamin D 25-OH, D2 <4 ng/mL; Vitamin D 25-OH, D3 43 ng/mL; Vitamin D 25-OH, Total 43 ng/mL (30-100)
== END 2024-08-18 07:35 | disposition home or self-care (01) ==
LOC: HO.LAB 07:34
PROVIDERS: PCP Internal Medicine; Visit Provider Internal Medicine
DX: Z00.00 Encounter for general adult medical examination without abnormal findings (principal); E78.5 Hyperlipidemia, unspecified; Z13.228 Encounter for screening for other metabolic disorders; M85.80 Other specified disorders of bone density and structure, unspecified site; Z13.0 Encounter for screening for diseases of the blood and blood-forming organs and certain disorders involving the immune mechanism
CPT/HCPCS: 36415; 80053; 80061; 82306; 84443; 85025

== ENCOUNTER 2025-03-04 11:22 | Outpatient (AMB) | payer OTHER, SELFPAY ==
--- NOTE | 2025-03-04 11:40 | A.OFFVIS_ITS ---
Vital Signs 03/04/25 11:46 Height 5 ft 3 in Weight 131 lb 13.383 oz BMI 23.4 BP 137/66 Blood Pressure Location Lt brachial Position Sitting Pulse 80 Intake Visit Reasons: Unspecified abdominal hernia Intake Note: Patient presents for an assessment for unspecified abdominal hernia. 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 She has felt this reducible mass in the right groin for what she thinks this more than 6 months now. She says that this has been causing some increasing discomfort. She says the mass becomes bigger whenever she has physical exertion. 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 She has a history of a left inguinal hernia in the past. She also has a Pfannenstiel incision after hysterectomy. She denies GI complaints. [facility] Medical History Right groin hernia Insomnia Hernia RLQ abdominal pain No pertinent past medical history Surgical History Hx of shoulder surgery H/O inguinal hernia repair H/O bilateral breast reduction surgery History of total abdominal hysterectomy H/O colonoscopy (~10/21/12) Family History Mother No problems noted. Father No problems noted. 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 Current occupational exposures/hazards: No Cognitive needs: No Hearing needs: No Vision needs: Yes Review of Systems Const Denies chills and Denies fever(s) Card Denies chest pain, Denies dyspnea and Denies dyspnea on exertion Resp Denies cough, Denies dyspnea and Denies dyspnea on exertion GI Denies hematochezia and Denies change in bowel habits Denies hematuria Musc Denies back pain and Denies limited range of motion Neuro Denies focal weakness and Denies convulsions Psych Denies depression and Denies mood swings Physical Exam Vital Signs: Last Vital Signs Pulse 80 03/04/25 11:46 BP 137/66 03/04/25 11:46 BMI result Body Mass Index 23.4 Const General: comfortable and no acute distress Orientation/consciousness: patient oriented x3 Neck Neck: Yes no lymphadenopathy Resp Auscultation: clear to auscultation bilaterally Cardio Rhythm: regular rhythm GI Other: Reducible right inguinal hernia, near the end of the Pfannenstiel incision Palpation (GI): Soft to palpation, nontender and no guarding Neuro General: patient oriented x3 Assessment & Plan Assessment & Plan (1) Right groin hernia: Code(s): K40.90 - Unilateral inguinal hernia, without obstruction or gangrene, not specified as recurrent Category: Medical Plan: She has a reducible right inguinal hernia. This is pretty close to the Pfannenstiel incision so I will do a CAT scan to confirm this. I did explain to her the technique of repair of right inguinal hernia with mesh. I reviewed the risks including but not limited to bleeding, infections, bowel injury, recurrence, postop pain, as well as the benefits and alternatives. I also explained to her what to expect postoperatively She says she understands and agrees to proceed. I will call her after a few her CAT scan. Orders: Orders CT abdomen pelvis wo IV con Today K40.90 - Unilateral inguinal hernia, without obstruction or gangrene, not specified as recurrent Coding Level of Care Code New Pt Level 3 (91664) Diagnoses Right groin hernia K40.90
[2025-03-04 11:46] VITALS: BP 137/66; PULSE 80; BMI 23.4
--- OUTSIDE RECORDS SUMMARY | 2025-03-04 13:41 | XMS_ITS | Clinical Summary ---
Author Organization [facility] Address [address] [facility] [address] [place] [address] Phone Care Team Providers Care Can Striper Name Role Phone Arthur Lemon MD Primary Care Provider Allergies No known active allergies Medications guaiFENesin-codeine (ROBITUSSIN AC) 100-10 mg/5 mL liquid Take 5 mL (10 mg of codeine total) by mouth 3 (three) times a day as needed for cough. 120 mL 0 Active ondansetron (ZOFRAN-ODT) 4 MG disintegrating tablet Take 1 tablet (4 mg total) by mouth every 8 (eight) hours as needed. 20 tablet 0 Active Active Problems Problem Noted Date Diagnosed Date Hypoxia 07/16/2019 Hyperglycemia 2019 Assessment & Plan (07/14/2019 11:32 AM EDT): She has had some hyperglycemia this admission, likely related to infection. HgB A1c 6.3. 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 Continues to show signs of improvement with resolving fever, hypoxic respiratory failure and resumption of olfactory function. Still requiring a small amount of O2. 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 Topete, [facility] Cervical intraepithelial neoplasia, grade III Overview (2019): s/p YEMI-BSO Resolved Problems Problem Noted Date Diagnosed Date Resolved Date Positive blood culture 07/10/201907/13 Assessment & Plan (07/13/2019 11:57 AM EDT): Single positive blood culture on 07/07 with coag negative staph. Subsequent blood cultures on 07/08, 07/09 and 07/11 have remained negative Appears to be a contaminant. No further work-up planned Family History Medical History Relation Comments No Known Problems Brother No Known Problems Father Osteoarthritis Mother No Known Problems Son Relation Status Comments Brother Alive Father Alive Mother Alive Son Alive Social History Tobacco Use Types Packs/Day Years Used Date Smoking Tobacco: Never Smokeless Tobacco: Never Alcohol Use Standard Drinks/Week Comments Not Currently 0 (1 standard drink = 0.6 oz pur e alcohol) Education Answer Date Recorded Are you interested in more education? Not on lisa e 07/28/2022 Are you concerned about learning? Not on file 07/28/2022 No 07/28/2022 No 07/28/2022 Digital Access Answer Date Recorded No 08/26/2022 No 08/26/2022 No 08/26/2022 Reliable internet access at home? Not on file 08/26/2022 Device with a working camera? 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 Not on file N ot on file Last Filed Vital Signs Vital Sign Reading Time Taken Comments Blood Pressure 116/75 07/16/2019 5:58 PM EDT Pulse 103 07/16/2019 5:58 PM EDT Temperature 36.9 C (98.4 F) 07/16/2019 5:58 PM EDT Respiratory Rate 18 07/16/2019 5:58 PM EDT Oxygen Saturation 93% 07/16/2019 5:58 PM EDT Inhaled Oxygen Concentration 40% 2019 7 :29 PM EDT Weight 61.2 kg (135 lb) 07/08/2019 3:45 PM EDT Height 162.6 cm (5' 4 ) 07/08/2019 3:45 PM EDT Body Mass Index 23.17 07/08/2019 3:45 PM EDT Plan of Treatment Health Maintenance Due Date Last Done Comments Adult Td,Tdap Booster 1960 LIPID PANEL 1960 DEPRESSION SCREENING 1974 HEPATITIS C SCREENING 1980 HIV ONE-TIME SCREENING (18-6 5 YEARS) 1980 PNEUMOCOCCAL VACCINES (50+ years) (1 of 2 - PCV) 1981 ZOSTER VACCINES (1 of 2) 1981 MAMMOGRAM 2002 COLOGUARD 07/13/2007 COLONOSCOPY 07/13/2007 COLORECTAL CANCER SCREENING 07/13/2007 FIT TEST 07/13/2007 FOBT 07/13/2007 SIGMOIDOSCOPY 07/13/2007 VIRTUAL COLONOSCOPY 07/13/2007 INFLUENZA VACCINE (#1) 2024 COVID-19 VACCINE (3 - 2024-2 6 season) 2024 04/20/2020, 03/30/2020 RSV VACCINE (1 - 1-dose 75+ series) 2037 SMOKING STATUS SCREENING (On ce After 26 Yrs) Completed 2019 HEPATITIS A VACCINES Aged Out No long er eligible based on patient's age to complete this topic HIB VACCINES Aged Out No longer eligi ble based on patient's age to complete this topic MENINGOCOCCAL VACCINES (ACWY) Aged Out No longer eligible based on patient's age to complete this topic MENINGOCOCCAL VACCINES (B) Aged Out N o longer eligible based on patient's age to complete this topic Medical Devices Not on file Insurance [facility]ICE [facility] [place] [id number] Advance Directives For more information, please contact: [phone] (9AM - 5PM [place], Sunday-Sunday) * Full Code (Latest Code Status on File) Date Activated Date Inactivated Comments 07/08/2019 4:47 PM Question Answer Comments Code Status Confirmed With: Patient Care Teams Can Striper Relationship Specialty Start Date End Date Arthur Lemon MD [address] [place] [address] [place] [address] PCP - General Internal Medicine 07/06/19 Additional Source Comments The information contained in this document represents components of the legal health record. It is not the complete legal health record.[facility]
== END 2025-03-04 11:55 | disposition home or self-care (01) ==
LOC: HO.HGS 11:23
PROVIDERS: PCP Physician Assistant Medical; Visit Provider Surgery
DX: K40.90 Unilateral inguinal hernia, without obstruction or gangrene, not specified as recurrent (principal)
CPT/HCPCS: 99203